=== PATIENT | female | born 1990 | race African-American/Black ===

== ENCOUNTER 2016-10-08 11:38 | Emergency (ER) | payer OTHER ==
[~2016-10-08] VITALS: Ht 165.1 cm; Wt 64.9 kg
[~2016-10-08 11:38] MED LIST: ACET-704 PO; PROM25TA10 PO
[2016-10-08] MEDS ORDERED: NAPROXEN 500 MG TABLET PO ONE (12:45)
--- NOTE | 2016-10-08 12:47 | ED.ADGEN ---
Past Medical History Past Medical History: Asthma Past Surgical History: Oophorectomy Additional Past Surgical Histo: right Alcohol Use: Heavy Drug Use: None Adult General Chief Complaint Chief Complaint: CHEST WALL PAIN HPI HPI Patient is a 26 year old woman, history of asthma, who presents to the emergency department with complaint of one week of chest and shoulder pain. 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 She states it is a sharp pain with motion, and a dull aching pain that is constant in her chest and shoulder without. Is worse with deep inspiration, states she does have some shortness of breath that she believes this might be from her asthma. Denies any fevers, any chills, any cough, any weakness numbness or tingling. Took Tylenol last night for this pain, nothing today. Does use Depo-Provera injections. No family history of cardiac disease in young people, states that her father did recently after a blood clot in his legs moved to his chest. Unclear the etiology for this clot, although she states that he did have a history of GSW which caused some medical problems. Review of Systems Review of Systems Constitutional: Denies fever or chills. [] Eyes: Denies change in visual acuity. [] HENT: Denies nasal congestion or sore throat. [] Respiratory: Denies cough or shortness of breath. [] Cardiovascular: Left-sided chest pain, shoulder pain. No edema. GI: Denies abdominal pain, nausea, vomiting, bloody stools or diarrhea. [] : Denies dysuria. [] Musculoskeletal: Denies back pain or joint pain. [] Integument: Denies rash. [] Neurologic: Denies headache, focal weakness or sensory changes. [] Endocrine: Denies polyuria or polydipsia. [] Lymphatic: Denies swollen glands. [] Psychiatric: Denies depression or anxiety. [] Current Medications Current Medications Current Medications Medications (Trade) Dose Ordered Sig/Eryn Start Time Stop Time Status Last Admin Dose Admin Naproxen (Naprosyn) 500 mg 1X ONCE 10/08/16 12:45 10/08/16 12:46 DC 10/08/16 13:12 500 MG Allergies Allergies Allergies Coded Allergies Type Severity Reaction Last Updated Verified No Known Drug Allergies 12/21/13 No Physical Exam Physical Exam Constitutional: Well developed, well nourished, no acute distress, non-toxic appearance. [] HENT: Normocephalic, atraumatic, bilateral external ears normal, oropharynx moist, no oral exudates, nose normal. [] Eyes: PERRLA, EOMI, conjunctiva normal, no discharge. [] Neck: Normal range of motion, no tenderness, supple, no stridor. [] Cardiovascular:Heart rate regular rhythm, no murmur, S1, S2, no rubs or gallops. Patient with reproducible chest wall tenderness across the left anterior chest wall, extending into the left shoulder. [] Lungs & Thorax: Bilateral breath sounds clear to auscultation, no wheezing, rhonchi, rales. No posterior chest will tenderness, no lesions or other abnormalities identified in the surface of the skin. [] Abdomen: Bowel sounds normal, soft, no tenderness, no rebound, rigidity, no guarding no masses, no pulsatile masses. [] Skin: Warm, dry, no erythema, no rash. [] Back: No tenderness, no CVA tenderness. [] Extremities: Tenderness to palpation in the left shoulder, the Stephane hemo-fossa, with no bony crepitus, patient with pain worse with internal rotation and extension, no cyanosis, no clubbing, ROM intact, no edema. [Negative Homans sign.] Neurologic: Alert and oriented X 3, normal motor function, normal sensory function, no focal deficits noted. [] Psychologic: Affect normal, judgement normal, mood normal. [] Current Patient Data Vital Signs Vital Signs Date Time Temp Pulse Resp B/P Pulse Ox O2 Delivery O2 Flow Rate FiO2 10/08/16 15:30 80 139/86 98 Room Air 10/08/16 11:55 98.6 16 98.6 Lab Values Laboratory Tests Test 10/08/16 13:06 10/08/16 13:24 10/08/16 13:50 Urine Opiates Screen Neg (NEG) Urine Methadone Screen Neg (NEG) Urine Barbiturates Neg (NEG) Urine Phencyclidine Screen Neg (NEG) Urine Amphetamine/Methamphetamine Neg (NEG) Urine Benzodiazepines Screen Neg (NEG) Urine Cocaine Screen Neg (NEG) Urine Cannabinoids Screen Neg (NEG) Urine Ethyl Alcohol Neg (NEG) POC Urine HCG, Qualitative Hcg negative (Negative) D-Dimer (Emily) 0.27ug/mlFEU (0.00-0.50) EKG EKG EC: Sinus rhythm, heart rate 100 bpm, upright axis, QTC of 449, NE 144, QRS 84, no ST elevations or depressions, no units of acute ST abnormalities. As interpreted by me. Radiology/Procedures Radiology/Procedures [] [place] [address] IMAGING REPORT Signed PATIENT: DOMENICA HOUSTON ACCOUNT: [id number] : 1990 LOCATION: ER AGE: 26 SEX: F EXAM STATUS: REG ER ORD. PHYSICIAN: REBA LANGSTON DO REASON: pain PROCEDURE: SHOULDER 2+V LEFT EXAM: Left shoulder 3 views. HISTORY: Left shoulder pain. COMPARISON: None. FINDINGS: No fractures are identified. Acromioclavicular and glenohumeral joint spaces and alignment are maintained. IMPRESSION: 1. No fracture or malalignment. DICTATED and SIGNED BY: TIFFANIE MCCORD MD DATE: 10/08/16 1341 CC: REBA LANGSTON DO; NO PCP ~ Impressions: [place] [phone] IMAGING REPORT Signed PATIENT: DOMENICA HOUSTON ACCOUNT: [id number] : 1990 LOCATION: ER AGE: 26 SEX: F EXAM STATUS: REG ER ORD. PHYSICIAN: REBA LANGSTON DO REASON: CP PROCEDURE: CHEST PA & LATERAL EXAM: Chest 2 views. HISTORY: Chest pain. COMPARISON: 10/10/2010. FINDINGS: Frontal and lateral views of the chest are obtained. There are no confluent infiltrates. There is no pneumothorax or pleural effusion. The heart is not enlarged. IMPRESSION: 1. No confluent infiltrates. DICTATED and SIGNED BY: TIFFANIE MCCORD MD DATE: 10/08/16 1342 CC: REBA LANGSTON DO; NO PCP ~ Course & Med Decision Making Course & Med Decision Making Pertinent Labs and Imaging studies reviewed. (See chart for details) Patient's examination is consistent with a musculoskeletal cause, however due to her family history and concern, initial heart rate of 101, use of Depo- Provera, a d-dimer was obtained which was negative. I do not believe that the patient is experiencing any findings consistent with a cardiac or pulmonary cause of her symptoms, patient received naproxen in the ED, and reevaluation she states that she is feeling "much much better", I discussed her labs and imaging, she is relieved with these findings, states she is rated go home. Discussed use of naproxen as needed, and concerning symptoms that would prompt return. Discharged home in stable condition with plan as above. Dragon Disclaimer Dragon Disclaimer This electronic medical record was generated, in whole or in part, using a voice recognition dictation system. Departure Impression: Primary Impression: Costochondritis Additional Impression: Musculoskeletal pain Disposition: HOME, SELF-CARE Condition: IMPROVED Scripts Naproxen 250 Mg [id number] Mg PO BID PRN PAIN #10 Prov:REBA LANGSTON DO 10/08/16 Problem Qualifiers REBA LANGSTON DO Oct 08, 2016 12:47
--- NOTE | 2016-10-08 13:44 | RAD ---
EXAM: Left shoulder 3 views. HISTORY: Left shoulder pain. COMPARISON: None. FINDINGS: No fractures are identified. Acromioclavicular and glenohumeral joint spaces and alignment are maintained. IMPRESSION: 1. No fracture or malalignment.
--- NOTE | 2016-10-08 13:44 | RAD ---
EXAM: Chest 2 views. HISTORY: Chest pain. COMPARISON: 10/10/2010. FINDINGS: Frontal and lateral views of the chest are obtained. There are no confluent infiltrates. There is no pneumothorax or pleural effusion. The heart is not enlarged. IMPRESSION: 1. No confluent infiltrates.
[2016-10-08 13:47] LABS: BARBITURATES NEG (NEG); BENZODIAZEPINES NEG (NEG); CANNABINOIDS NEG (NEG); COCAINE NEG (NEG); METHADONE NEG (NEG); OPIATES NEG (NEG); PHENCYCLIDINE NEG (NEG)
[2016-10-08 13:48] LABS: ETHANOL, URINE NEG (NEG)
--- NOTE | 2016-10-08 14:30 | EKG ---
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
[2016-10-08] MEDS ORDERED: NAPR250T2 PO (15:25)
[2016-10-08 15:30] VITALS: BP 139/86
== END 2016-10-08 15:52 | disposition home or self-care (01) ==
LOC: ER 11:43
DX: M94.0 Chondrocostal junction syndrome [Tietze] (principal); M79.1 Myalgia; M25.512 Pain in left shoulder; J45.909 Unspecified asthma, uncomplicated; F10.10 Alcohol abuse, uncomplicated; Z90.721 Acquired absence of ovaries, unilateral
CPT/HCPCS: 36415; 71020; 73030; 81025; 85379; 93005; 99285; G0481

== ENCOUNTER 2017-01-27 21:43 | Emergency (ER) | payer SELFPAY ==
[~2017-01-27] VITALS: Ht 165.1 cm; Wt 65.8 kg
[~2017-01-27 21:43] MED LIST changes: +NAPR250T2 PO
[2017-01-27 22:31] LABS: BASO % 1 % (0-3); EOS % 1 % (0-3); HEMATOCRIT 38.9 % (36.0-47.0); HEMOGLOBIN 13.3 g/dL (12.0-15.5); LYMPH # 1.7 x10^3/uL (1.0-4.8); LYMPH % 38 % (24-48); MEAN CORPUSCULAR HEMOGLOBIN 30 pg (25-35); MEAN CORPUSCULAR HGB CONC 34 g/dL (31-37); MEAN CORPUSCULAR VOLUME 87 fL (79-100); MONO % 9 % (0-9); NEUT % 52 % (31-73); PLATELET COUNT 163 x10^3/uL (140-400); RED BLOOD COUNT 4.47 x10^6/uL (3.50-5.40); RED CELL DISTRIBUTION WIDTH 14.4 % (11.5-14.5); WHITE BLOOD COUNT 4.5 x10^3/uL (4.0-11.0)
[2017-01-27 22:36] LABS: BILIRUBIN,URINE NEGATIVE (NEG); GLUCOSE,URINE NEGATIVE (NEG); NITRITE,URINE NEGATIVE (NEG); PH,URINE 5.5; PROTEIN,URINE NEGATIVE (NEG-TRACE); UROBILINOGEN,URINE 0.2 mg/dL (0.2 mg/dL)
[2017-01-27 22:43] LABS: CALCIUM 9.4 mg/dL (8.5-10.1); CREATININE 0.9 mg/dL (0.6-1.0); GFR 90.9
[2017-01-27] MEDS ORDERED: ONDANSETRON PF 4 MG/2 ML VIAL. IV ONE (22:45)
[2017-01-27] MEDS ORDERED: IV NORMAL SALINE 1000ML BAG 1,000 ML IV ONE (22:45)
[2017-01-27 22:50] LABS: ALBUMIN 4.1 g/dL (3.4-5.0); TOTAL BILIRUBIN 0.8 mg/dL (0.2-1.0); TOTAL PROTEIN 8.1 g/dL (6.4-8.2)
[2017-01-27 22:52] LABS: RBC,URINE 0 /HPF (0-2); WBC,URINE OCC /HPF (0-4)
[2017-01-27 22:53] LABS: BACTERIA,URINE 0 /HPF (0-FEW); SQUAMOUS EPITHELIAL CELL,UR OCC /LPF
[2017-01-27] MEDS ORDERED: ONDA4TAB10 SL (23:32)
[2017-01-27] MEDS ORDERED: IBUP-1007 PO (23:32)
--- NOTE | 2017-01-27 23:32 | PHYS DOC ---
Past Medical History Past Medical History: Asthma Past Surgical History: Oophorectomy Additional Past Surgical Histo: right Alcohol Use: Heavy Drug Use: None Adult General Chief Complaint Chief Complaint: ABDOMINAL PAIN HPI HPI Patient is a 26 year old female who presents here today complaining of lower back pain on the right side for approximately 3 days. Patient reports she been taking Tylenol was some relief. Patient denies any fevers shakes chills. Patient reports that nausea vomiting as well as diarrhea over the last couple days. Patient has a dysuria frequency urgency or hematuria. Patient's currently on her menses. Patient's 4 para 3. Patient reports decreased by mouth intake. Patient denies any chest pain shortness of breath. Patient denies any cough cold or runny nose. Patient has any vaginal discharge. Patient denies any history of hypertension diabetes liver longer kidney problems. Patient reports she is status post an oophorectomy secondary to a dermoid cyst in the past. Patient reports she does smoke and drink occasionally. Patient is not allergic to any medications. Patient presents at the pain is intermittent in nature. Patient reports the pain increases when she twists her back. Patient's physical exam was significant for some mild tenderness to palpation to her right flank. Patient does not present with any signs or symptoms of be consistent with retroperitonitis. Patient's abdomen was soft nondistended no rebound or guarding. Patient does have some mild tenderness to palpation to her right upper abdominal area. Patient has normal active bowel sounds. Patient does not present with any signs or symptoms of be consistent with an acute surgical abdomen. Patient's ER workup has been unremarkable. Patient's CBC chemistry and a UA that were all within normal limits. Etiology of the patient's abdominal discomfort is unclear. However the patient does not present with any signs or symptoms that would be consistent with an acute surgical abdomen. Patient does not present with any signs or symptoms that would require any further inpatient her ER evaluation at this time. Patient will need to follow-up with her primary care physician for further outpatient evaluation. Assessment and plan 26-year-old female since here today complaining of lower back pain as well as abdominal pain has been on for approximately 3 days. Patient's ER workup has been unremarkable. Patient be discharged home in stable condition with continued outpatient evaluation by her primary care physician. Precautions been reviewed with the patient. Patient is to return to the ER if the pain worsens or if the pain does not resolve within the next 12-24 hours. Patient is otherwise to follow-up with her primary care physician for further evaluation. Patient be discharged with a prescription for ibuprofen and Zofran. Review of Systems Review of Systems Constitutional: Denies fever or chills [] Eyes: Denies change in visual acuity, redness, or eye pain [] All other review systems are negative except as documented in the history of present illness portion. Current Medications Current Medications Current Medications Medications (Trade) Dose Ordered Sig/Eryn Start Time Stop Time Status Last Admin Dose Admin Ondansetron HCl (Zofran) 4 mg 1X ONCE 01/27/17 22:45 01/27/17 22:46 DC 01/27/17 22:40 4 MG Sodium Chloride 1,000 ml @ 1,000 mls/hr 1X ONCE 01/27/17 22:45 01/27/17 23:44 01/27/17 22:38 1,000 MLS/HR Allergies Allergies Allergies Coded Allergies Type Severity Reaction Last Updated Verified No Known Drug Allergies 12/21/13 No Physical Exam Physical Exam Constitutional: Well developed, well nourished, no acute distress, non-toxic appearance. [] HENT: Normocephalic, atraumatic, Eyes: PERRLA, EOMI, conjunctiva normal, no discharge. [] Neck: Normal range of motion, no tenderness, supple, no stridor. [] Cardiovascular:Heart rate regular rhythm Lungs & Thorax: Bilateral breath sounds clear to auscultation [] Abdomen: See above Back: No tenderness, no CVA tenderness. [] Extremities: No tenderness, no cyanosis, no clubbing, ROM intact, no edema. [] Neurologic: Alert and oriented X 3, normal motor function, normal sensory function, no focal deficits noted. [] Psychologic: Affect normal, judgement normal, mood normal. [] Current Patient Data Vital Signs Vital Signs Date Time Temp Pulse Resp B/P (MAP) Pulse Ox O2 Delivery O2 Flow Rate FiO2 01/27/17 21:51 98.6 80 18 136/83 (100) 97 Room Air 98.6 Lab Values Laboratory Tests Test 01/27/17 21:12 01/27/17 21:47 01/27/17 22:00 POC Urine HCG, Qualitative Hcg negative (Negative) Urine Collection Type Unknown Urine Color Yellow Urine Clarity Clear Urine pH 5.5 Urine Specific [place] <=1.005 Urine Protein Negative mg/dL (NEG-TRACE) Urine Glucose (UA) Negative mg/dL (NEG) Urine Ketones (Stick) Negative mg/dL (NEG) Urine Blood Negative (NEG) Urine Nitrite Negative (NEG) Urine Bilirubin Negative (NEG) Urine Urobilinogen Dipstick 0.2 mg/dL (0.2 mg/dL) Urine Leukocyte Esterase Negative (NEG) Urine RBC 0 /HPF (0-2) Urine WBC Occ /HPF (0-4) Urine Squamous Epithelial Cells Occ /LPF Urine Bacteria 0 /HPF (0-FEW) White Blood Count 4.5 x10^3/uL (4.0-11.0) Red Blood Count 4.47 x10^6/uL (3.50-5.40) Hemoglobin 13.3 g/dL (12.0-15.5) Hematocrit 38.9 % (36.0-47.0) Mean Corpuscular Volume 87 fL (79-100) Mean Corpuscular Hemoglobin 30 pg (25-35) Mean Corpuscular Hemoglobin Concent 34 g/dL (31-37) Red Cell Distribution Width 14.4 % (11.5-14.5) Platelet Count 163 x10^3/uL (140-400) Neutrophils (%) (Auto) 52 % (31-73) Lymphocytes (%) (Auto) 38 % (24-48) Monocytes (%) (Auto) 9 % (0-9) Eosinophils (%) (Auto) 1 % (0-3) Basophils (%) (Auto) 1 % (0-3) Neutrophils # (Auto) 2.3 x10^3uL (1.8-7.7) Lymphocytes # (Auto) 1.7 x10^3/uL (1.0-4.8) Monocytes # (Auto) 0.4 x10^3/uL (0.0-1.1) Eosinophils # (Auto) 0.1 x10^3/uL (0.0-0.7) Basophils # (Auto) 0.0 x10^3/uL (0.0-0.2) Sodium Level 138 mmol/L (136-145) Potassium Level 4.0 mmol/L (3.5-5.1) Chloride Level 101 mmol/L (98-107) Carbon Dioxide Level 25 mmol/L (21-32) Anion Gap 12 (6-14) Blood Urea Nitrogen 10 mg/dL (7-20) Creatinine 0.9 mg/dL (0.6-1.0) Estimated GFR (Cockcroft-Gault) 90.9 BUN/Creatinine Ratio 11 (6-20) Glucose Level 79 mg/dL (70-99) Calcium Level 9.4 mg/dL (8.5-10.1) Total Bilirubin 0.8 mg/dL (0.2-1.0) Aspartate Amino Transferase (AST) 78 U/L (15-37) H Alanine Aminotransferase (ALT) 76 U/L (14-59) H Alkaline Phosphatase 83 U/L (46-116) Total Protein 8.1 g/dL (6.4-8.2) Albumin 4.1 g/dL (3.4-5.0) Albumin/Globulin Ratio 1.0 (1.0-1.7) Lipase 148 U/L (73-393) Laboratory Tests 01/27/17 22:00 Laboratory Tests 01/27/17 22:00 EKG EKG [] Radiology/Procedures Radiology/Procedures [] Course & Med Decision Making Course & Med Decision Making Pertinent Labs and Imaging studies reviewed. (See chart for details) [] Dragon Disclaimer Dragon Disclaimer This electronic medical record was generated, in whole or in part, using a voice recognition dictation system. Departure Departure Impression: Primary Impression: Gastroenteritis Additional Impression: Nonspecific abdominal pain Disposition: 01 HOME, SELF-CARE Condition: IMPROVED Referrals: NO PCP (PCP) Patient Instructions: Abdominal Pain (Nonspecific) Scripts Ondansetron (ZOFRAN ODT) 4 Mg Tab.rapdis 1 TAB SL Q6HRS Y for NAUSEA, #12 TAB Prov: TREVOR GRAY MD 01/27/17 Ibuprofen (IBUPROFEN) 600 Mg Tablet 600 MG PO PRN Q6HRS Y for PAIN, #20 TAB Prov: TREVOR GRAY MD 01/27/17 Problem Qualifiers TREVOR GRAY MD Jan 27, 2017 23:32
[2017-01-27 23:40] VITALS: BP 120/86
== END 2017-01-27 23:40 | disposition home or self-care (01) ==
LOC: ER 21:43
DX: K21.9 Gastro-esophageal reflux disease without esophagitis (principal); R30.0 Dysuria; J45.909 Unspecified asthma, uncomplicated; F10.10 Alcohol abuse, uncomplicated
CPT/HCPCS: 36415; 80053; 81001; 81025; 83690; 85027; 96361; 96374; 99284; J2405; J7030

== ENCOUNTER 2017-05-23 16:52 | Emergency (ER) | payer SELFPAY ==
[~2017-05-23] VITALS: Ht 165.1 cm; Wt 63.5 kg
[~2017-05-23 16:52] MED LIST changes: +IBUP-1007 PO; -NAPR250T2 PO; +NAPR250T6 PO; +ONDA4TAB10 SL; +PROAIR HFA8.5 GM INH
[2017-05-23] MEDS ORDERED: IV NORMAL SALINE 1000ML BAG 1,000 ML IV ONE (17:45)
[2017-05-23 18:17] LABS: BILIRUBIN,URINE NEGATIVE (NEG); GLUCOSE,URINE NEGATIVE (NEG); NITRITE,URINE NEGATIVE (NEG); PH,URINE 5.5; PROTEIN,URINE NEGATIVE (NEG-TRACE); UROBILINOGEN,URINE 0.2 mg/dL (0.2 mg/dL)
[2017-05-23 18:22] LABS: BASO % 0 % (0-3); EOS % 1 % (0-3); HEMATOCRIT 38.1 % (36.0-47.0); HEMOGLOBIN 12.9 g/dL (12.0-15.5); LYMPH # 1.8 x10^3/uL (1.0-4.8); LYMPH % 31 % (24-48); MEAN CORPUSCULAR HEMOGLOBIN 30 pg (25-35); MEAN CORPUSCULAR HGB CONC 34 g/dL (31-37); MEAN CORPUSCULAR VOLUME 88 fL (79-100); MONO % 8 % (0-9); NEUT % 60 % (31-73); PLATELET COUNT 194 x10^3/uL (140-400); RED BLOOD COUNT 4.34 x10^6/uL (3.50-5.40)
--- NOTE | 2017-05-23 18:22 | PHYS DOC ---
Past Medical History Past Medical History: Alcoholism, Asthma Past Surgical History: Oophorectomy Additional Past Surgical Histo: right Smokin Pack Per Day Alcohol Use: Heavy Drug Use: None Adult General Chief Complaint Chief Complaint: CHEST PAIN HPI HPI Patient is a 26 year old female presents to the emergency department with a one -week history of left anterior chest pain. She states today she had intermittent dizziness. She denies blurred vision, double vision, neck pain, abdominal pain. She has no nausea, vomiting. Reports no fever. Patient states she does smoke 1 pack of cigarettes a day and uses alcohol daily, states that she has been drinking a 12 pack of beer daily for the past 11-12 years. Denies drug use Review of Systems Review of Systems Constitutional: Denies fever or chills [] Eyes: Denies change in visual acuity, redness, or eye pain [] HENT: Denies nasal congestion or sore throat [] Respiratory: Denies cough or shortness of breath [] Cardiovascular: Left anterior chest pain, no dyspnea, no edema GI: Denies abdominal pain, nausea, vomiting, bloody stools or diarrhea [] : Denies dysuria or hematuria [] Musculoskeletal: Denies back pain or joint pain [] Integument: Denies rash or skin lesions [] Neurologic: Denies headache, focal weakness or sensory changes [] Endocrine: Denies polyuria or polydipsia [] Current Medications Current Medications Current Medications Medications (Trade) Dose Ordered Sig/Eryn Start Time Stop Time Status Last Admin Dose Admin Ketorolac Tromethamine (Toradol) 30 mg 1X ONCE 05/23/17 18:45 05/23/17 18:46 DC Sodium Chloride 1,000 ml @ 1,000 mls/hr 1X ONCE 05/23/17 17:45 05/23/17 18:44 DC 05/23/17 18:16 1,000 MLS/HR Allergies Allergies Allergies Coded Allergies Type Severity Reaction Last Updated Verified No Known Drug Allergies 12/21/13 No Physical Exam Physical Exam Constitutional: Well developed, well nourished, no acute distress, non-toxic appearance. [] HENT: Normocephalic, atraumatic, bilateral external ears normal, oropharynx moist, no oral exudates, nose normal. [] Eyes: PERRLA, EOMI, conjunctiva normal, no discharge. [] Neck: Normal range of motion, no tenderness, supple, no stridor. [] Cardiovascular:Heart rate regular rhythm, no murmur [] Lungs & Thorax: Bilateral breath sounds clear to auscultation [] Abdomen: Bowel sounds normal, soft, no tenderness, no masses, no pulsatile masses. [] Skin: Warm, dry, no erythema, no rash. [] Back: No tenderness, no CVA tenderness. [] Extremities: No tenderness, no cyanosis, no clubbing, ROM intact, no edema. [] Neurologic: Alert and oriented X 3, normal motor function, normal sensory function, no focal deficits noted. [] Psychologic: Affect normal, judgement normal, mood normal. [] Current Patient Data Vital Signs Vital Signs Date Time Temp Pulse Resp B/P (MAP) Pulse Ox O2 Delivery O2 Flow Rate FiO2 05/23/17 18:03 98 20 137/91 (106) 99 Room Air 05/23/17 17:11 98.3 98.3 Lab Values Laboratory Tests Test 05/23/17 17:10 05/23/17 17:58 05/23/17 18:03 05/23/17 18:09 POC Urine HCG, Qualitative Hcg negative (Negative) Hcg negative (Negative) Urine Color Yellow Urine Clarity Clear Urine pH 5.5 Urine Specific [place] <=1.005 Urine Protein Negative mg/dL (NEG-TRACE) Urine Glucose (UA) Negative mg/dL (NEG) Urine Ketones (Stick) Negative mg/dL (NEG) Urine Blood Negative (NEG) Urine Nitrite Negative (NEG) Urine Bilirubin Negative (NEG) Urine Urobilinogen Dipstick 0.2 mg/dL (0.2 mg/dL) Urine Leukocyte Esterase Negative (NEG) Urine RBC 0 /HPF (0-2) Urine WBC 0 /HPF (0-4) Urine Squamous Epithelial Cells Occ /LPF Urine Bacteria 0 /HPF (0-FEW) Urine Opiates Screen Neg (NEG) Urine Methadone Screen Neg (NEG) Urine Barbiturates Neg (NEG) Urine Phencyclidine Screen Neg (NEG) Urine Amphetamine/Methamphetamine Neg (NEG) Urine Benzodiazepines Screen Neg (NEG) Urine Cocaine Screen Neg (NEG) Urine Cannabinoids Screen Neg (NEG) Urine Ethyl Alcohol Neg (NEG) White Blood Count 6.0 x10^3/uL (4.0-11.0) Red Blood Count 4.34 x10^6/uL (3.50-5.40) Hemoglobin 12.9 g/dL (12.0-15.5) Hematocrit 38.1 % (36.0-47.0) Mean Corpuscular Volume 88 fL (79-100) Mean Corpuscular Hemoglobin 30 pg (25-35) Mean Corpuscular Hemoglobin Concent 34 g/dL (31-37) Red Cell Distribution Width 13.0 % (11.5-14.5) Platelet Count 194 x10^3/uL (140-400) Neutrophils (%) (Auto) 60 % (31-73) Lymphocytes (%) (Auto) 31 % (24-48) Monocytes (%) (Auto) 8 % (0-9) Eosinophils (%) (Auto) 1 % (0-3) Basophils (%) (Auto) 0 % (0-3) Neutrophils # (Auto) 3.6 x10^3uL (1.8-7.7) Lymphocytes # (Auto) 1.8 x10^3/uL (1.0-4.8) Monocytes # (Auto) 0.5 x10^3/uL (0.0-1.1) Eosinophils # (Auto) 0.1 x10^3/uL (0.0-0.7) Basophils # (Auto) 0.0 x10^3/uL (0.0-0.2) Sodium Level 137 mmol/L (136-145) Potassium Level 3.3 mmol/L (3.5-5.1) L Chloride Level 104 mmol/L (98-107) Carbon Dioxide Level 25 mmol/L (21-32) Anion Gap 8 (6-14) Blood Urea Nitrogen 11 mg/dL (7-20) Creatinine 0.7 mg/dL (0.6-1.0) Estimated GFR (Cockcroft-Gault) 121.5 BUN/Creatinine Ratio 16 (6-20) Glucose Level 88 mg/dL (70-99) Calcium Level 8.9 mg/dL (8.5-10.1) Total Bilirubin 0.6 mg/dL (0.2-1.0) Aspartate Amino Transferase (AST) 29 U/L (15-37) Alanine Aminotransferase (ALT) 29 U/L (14-59) Alkaline Phosphatase 75 U/L (46-116) Creatine Kinase 322 U/L (26-192) H Creatine Kinase MB (Mass) 1.2 ng/mL (0.0-3.6) Creatine Kinase MB Relative Index 0.4 % (0-4) Total Protein 7.9 g/dL (6.4-8.2) Albumin 4.0 g/dL (3.4-5.0) Albumin/Globulin Ratio 1.0 (1.0-1.7) Test 05/23/17 18:14 POC Troponin I 0.00 ng/ml (<0.08) Laboratory Tests 05/23/17 18:09 Laboratory Tests 05/23/17 18:09 EKG EKG EKG, time completed 1708, reviewed by Dr. Kaufman, non-STEMI, sinus rhythm.[] Radiology/Procedures Radiology/Procedures [] Course & Med Decision Making Course & Med Decision Making Pertinent Labs and Imaging studies reviewed. (See chart for details) []EKG and lab results reviewed, CK at 322. 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 She sees ibuprofen or Tylenol for relief of symptoms. She is returning emergency Department for new symptoms or concerns or worsening of current condition. I did discuss with the patient her excessive use of alcohol and tobacco, she verbalizes understanding but laughs when recommendations to quit are discussed. Dragon Disclaimer Dragon Disclaimer This electronic medical record was generated, in whole or in part, using a voice recognition dictation system. Departure Departure Impression: Primary Impression: Chest wall pain Additional Impressions: Alcohol abuse Tobacco use Disposition: 01 HOME, SELF-CARE Condition: STABLE Referrals: NO PCP (PCP) [facility] Patient Instructions: Alcohol Problems, Chest Wall Pain, Smoking Cessation Scripts Ibuprofen (IBUPROFEN) 800 Mg Tablet 800 MG PO PRN Q6HRS Y for INFLAMMATION, #20 TAB Prov: ZENAIDA BRUNO APRN 05/23/17 Problem Qualifiers ZENAIDA BRUNO APRN May 23, 2017 18:22
[2017-05-23 18:27] LABS: BARBITURATES NEG (NEG); BENZODIAZEPINES NEG (NEG); CANNABINOIDS NEG (NEG); COCAINE NEG (NEG); METHADONE NEG (NEG); OPIATES NEG (NEG); PHENCYCLIDINE NEG (NEG)
[2017-05-23 18:30] LABS: BACTERIA,URINE 0 /HPF (0-FEW); RBC,URINE 0 /HPF (0-2); SQUAMOUS EPITHELIAL CELL,UR OCC /LPF; WBC,URINE 0 /HPF (0-4)
[2017-05-23 18:38] LABS: CALCIUM 8.9 mg/dL (8.5-10.1); CREATININE 0.7 mg/dL (0.6-1.0); GFR 121.5; POTASSIUM 3.3 mmol/L (3.5-5.1)
[2017-05-23] MEDS ORDERED: KETOROLAC 30 MG/ML INJ. IV ONE (18:45)
[2017-05-23 18:48] LABS: TOTAL BILIRUBIN 0.6 mg/dL (0.2-1.0); TOTAL PROTEIN 7.9 g/dL (6.4-8.2)
[2017-05-23 18:54] LABS: CKMB MASS 1.2 ng/mL (0.0-3.6)
[2017-05-23 19:03] VITALS: BP 133/91
[2017-05-23] MEDS ORDERED: IBUP-1060 PO (19:10)
--- NOTE | 2017-05-24 06:21 | EKG ---
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
== END 2017-05-23 19:23 | disposition home or self-care (01) ==
LOC: ER 16:52
DX: R07.89 Other chest pain (principal); F10.10 Alcohol abuse, uncomplicated; R42 Dizziness and giddiness; J45.909 Unspecified asthma, uncomplicated; F17.210 Nicotine dependence, cigarettes, uncomplicated
CPT/HCPCS: 36415; 80053; 80307; 81001; 81025; 82553; 84484; 85025; 93005; 96361; 96374; 99285; J1885; J7030; G0479

== ENCOUNTER 2018-04-06 09:27 | Emergency (ER) | payer SELFPAY ==
[~2018-04-06] VITALS: Ht 165.1 cm; Wt 68.0 kg
[~2018-04-06 09:27] MED LIST changes: +IBUP-1060 PO
[2018-04-06 09:48] LABS: BILIRUBIN,URINE NEGATIVE (NEG); CLARITY,URINE CLEAR; COLOR,URINE YELLOW; NITRITE,URINE NEGATIVE (NEG); PROTEIN,URINE NEGATIVE (NEG-TRACE); UROBILINOGEN,URINE 0.2 mg/dL (0.2 mg/dL)
--- NOTE | 2018-04-06 09:49 | PHYS DOC ---
Past Medical History Past Medical History: Alcoholism, Asthma Past Surgical History: Oophorectomy Additional Past Surgical Histo: right Alcohol Use: Heavy Additional Information: 10 beers per day. Drug Use: None Adult General Chief Complaint Chief Complaint: FLANK PAIN HPI HPI Patient is a 27 year old female presents to the ED complaining of right flank pain times one day ago. States the pain started last night. States the pain radiates around to her right lower abdomen. Describes the pain as sharp. Rates the pain as 8 out of 10. States symptoms include nausea. Denies dizziness, weakness, chest pain, shortness of breath, headache, fever, diarrhea, blood in stool. Review of Systems Review of Systems Constitutional: Denies fever or chills [] Eyes: Denies change in visual acuity, redness, or eye pain [] HENT: Denies nasal congestion or sore throat [] Respiratory: Denies cough or shortness of breath [] Cardiovascular: No additional information not addressed in HPI [] GI: Complains of abdominal pain and nausea. Denies vomiting, bloody stools or diarrhea [] : Denies dysuria or hematuria [] Musculoskeletal: Denies back pain or joint pain [] Integument: Denies rash or skin lesions [] Neurologic: Denies headache, focal weakness or sensory changes [] All other systems were reviewed and found to be within normal limits, except as documented in this note. Current Medications Current Medications Current Medications Medications (Trade) Dose Ordered Sig/Eryn Start Time Stop Time Status Last Admin Dose Admin Ketorolac Tromethamine (Toradol 30mg Vial) 30 mg 1X ONCE 04/06/18 11:30 04/06/18 11:31 DC 04/06/18 11:12 30 MG Morphine Sulfate (Morphine Sulfate) 4 mg 1X ONCE 04/06/18 10:00 04/06/18 10:01 DC 04/06/18 10:00 4 MG Ondansetron HCl (Zofran) 4 mg 1X ONCE 04/06/18 10:00 04/06/18 10:01 DC 04/06/18 10:00 4 MG Sodium Chloride 1,000 ml @ 1,000 mls/hr 1X ONCE 04/06/18 11:00 04/06/18 11:59 DC 04/06/18 11:11 1,000 MLS/HR Allergies Allergies Allergies Coded Allergies Type Severity Reaction Last Updated Verified No Known Drug Allergies 12/21/13 No Physical Exam Physical Exam Constitutional: Well developed, well nourished, no acute distress, non-toxic appearance. [] HENT: Normocephalic, atraumatic Neck: Normal range of motion, no tenderness, supple, no stridor. [] Cardiovascular:Heart rate regular rhythm, no murmur [] Lungs & Thorax: Bilateral breath sounds clear to auscultation [] Abdomen: Bowel sounds normal, soft, mild right sided abdominal tenderness, no masses, no pulsatile masses. [] Skin: Warm, dry, no erythema, no rash. [] Back: No tenderness, no CVA tenderness. [] Extremities: No tenderness, no cyanosis, no clubbing, ROM intact, no edema. [] Neurologic: Alert and oriented X 3, normal motor function, normal sensory function, no focal deficits noted. [] Psychologic: Affect normal, judgement normal, mood normal. [] Current Patient Data Vital Signs Vital Signs Date Time Temp Pulse Resp B/P (MAP) Pulse Ox O2 Delivery O2 Flow Rate FiO2 04/06/18 11:54 72 18 95/58 (70) 98 Room Air 04/06/18 09:30 98.4 98.4 Lab Values Laboratory Tests Test 04/06/18 09:32 04/06/18 09:50 Urine Collection Type Unknown Urine Color Yellow Urine Clarity Clear Urine pH 6.0 Urine Specific [place] 1.015 Urine Protein Negative mg/dL (NEG-TRACE) Urine Glucose (UA) Negative mg/dL (NEG) Urine Ketones (Stick) Negative mg/dL (NEG) Urine Blood Negative (NEG) Urine Nitrite Negative (NEG) Urine Bilirubin Negative (NEG) Urine Urobilinogen Dipstick 0.2 mg/dL (0.2 mg/dL) Urine Leukocyte Esterase Negative (NEG) Urine RBC 0 /HPF (0-2) Urine WBC 0 /HPF (0-4) Urine Squamous Epithelial Cells Mod /LPF Urine Bacteria 0 /HPF (0-FEW) Urine Mucus Slight /LPF Urine Test Negative (NEG) White Blood Count 5.8 x10^3/uL (4.0-11.0) Red Blood Count 4.41 x10^6/uL (3.50-5.40) Hemoglobin 13.3 g/dL (12.0-15.5) Hematocrit 37.7 % (36.0-47.0) Mean Corpuscular Volume 85 fL (79-100) Mean Corpuscular Hemoglobin 30 pg (25-35) Mean Corpuscular Hemoglobin Concent 35 g/dL (31-37) Red Cell Distribution Width 12.5 % (11.5-14.5) Platelet Count 219 x10^3/uL (140-400) Neutrophils (%) (Auto) 55 % (31-73) Lymphocytes (%) (Auto) 34 % (24-48) Monocytes (%) (Auto) 9 % (0-9) Eosinophils (%) (Auto) 2 % (0-3) Basophils (%) (Auto) 1 % (0-3) Neutrophils # (Auto) 3.2 x10^3uL (1.8-7.7) Lymphocytes # (Auto) 1.9 x10^3/uL (1.0-4.8) Monocytes # (Auto) 0.5 x10^3/uL (0.0-1.1) Eosinophils # (Auto) 0.1 x10^3/uL (0.0-0.7) Basophils # (Auto) 0.0 x10^3/uL (0.0-0.2) Sodium Level 140 mmol/L (136-145) Potassium Level 4.2 mmol/L (3.5-5.1) Chloride Level 104 mmol/L (98-107) Carbon Dioxide Level 26 mmol/L (21-32) Anion Gap 10 (6-14) Blood Urea Nitrogen 8 mg/dL (7-20) Creatinine 0.8 mg/dL (0.6-1.0) Estimated GFR (Cockcroft-Gault) 103.3 BUN/Creatinine Ratio 10 (6-20) Glucose Level 85 mg/dL (70-99) Calcium Level 8.4 mg/dL (8.5-10.1) L Total Bilirubin 0.4 mg/dL (0.2-1.0) Aspartate Amino Transferase (AST) 16 U/L (15-37) Alanine Aminotransferase (ALT) 17 U/L (14-59) Alkaline Phosphatase 76 U/L (46-116) Total Protein 7.4 g/dL (6.4-8.2) Albumin 3.6 g/dL (3.4-5.0) Albumin/Globulin Ratio 0.9 (1.0-1.7) L Lipase 99 U/L (73-393) Laboratory Tests 04/06/18 09:50 Laboratory Tests 04/06/18 09:50 EKG EKG [] Radiology/Procedures Radiology/Procedures PROCEDURE: CT ABDOMEN PELVIS WO CONTRAST CT abdomen and pelvis without contrast: Reason for examination: Right flank to right lower quadrant pain for 3 days. Helical images were obtained through the abdomen pelvis with no intravenous or oral contrast administered. Reconstruction was performed in sagittal and coronal planes. Exposure: One or more of the following individualized dose reduction techniques were utilized for this examination: 1. Automated exposure control 2. Adjustment of the mA and/or kV according to patient size 3. Use of iterative reconstruction technique. The lung bases are clear. The heart size is normal with no pericardial effusion. No abnormality seen at the liver, gallbladder, spleen, adrenal glands or pancreas. The abdominal aorta and inferior vena cava show no abnormalities. The kidneys show no renal masses or renal calculi. No hydronephrosis is evident. Along the course of the right ureter however there is a 3.2 mm calculus present. No other calcifications are seen along the course of the ureters. No abnormality seen at the appendix. The intestinal tract shows no abnormally dilated loops of bowel. There is no evidence of diverticulosis or diverticulitis. No abnormality seen at the bladder, uterus or at the adnexa. No free fluid or free air is seen in the abdomen or pelvis. No acute bony abnormalities are seen. IMPRESSION: 3.2 mm calcification seen at the mid right ureter but no hydronephrosis is evident. No other focal abnormality seen in the abdomen or pelvis.[] Course & Med Decision Making Course & Med Decision Making Pertinent Labs and Imaging studies reviewed. (See chart for details) []Discussed lab and imaging findings with patient. Patient's pain improved. States she is feeling much better. On reexamination, abdomen is soft nontender nondistended. No peritoneal signs. Tolerating by mouth. We'll discharge outpatient with antibiotics, analgesics and Flomax. Discussed follow-up with PCP this coming week. Provided contact information/education. Discussed reasons to return to the ED. Patient understands and agrees with plan. Dragon Disclaimer Dragon Disclaimer This electronic medical record was generated, in whole or in part, using a voice recognition dictation system. Departure Departure Impression: Primary Impression: Kidney stone Disposition: HOME, SELF-CARE Condition: IMPROVED Referrals: NO PCP (PCP) DEO ARAYA MD Patient Instructions: Kidney Stones Scripts Hydrocodone/Apap 5-325 (NORCO 5-325 TABLET) 1 Each Tablet 1 TAB PO BID for 3 Days, #6 TAB Prov: DEO FLOWERS 04/06/18 Tamsulosin Hcl (FLOMAX) 0.4 Mg Cap.er.24h 1 CAP PO DAILY, #7 CAP 0 Refills Prov: DEO FLOWERS 04/06/18 Ciprofloxacin Hcl (CIPRO) 500 Mg Tablet 1 TAB PO BID for 7 Days, #14 TAB Prov: DEO FLOWERS 04/06/18 DEO FLOWERS Apr 06, 2018 09:49
[2018-04-06 10:00] LABS: BASO % 1 % (0-3); EOS # 0.1 x10^3/uL (0.0-0.7); EOS % 2 % (0-3); HEMATOCRIT 37.7 % (36.0-47.0); HEMOGLOBIN 13.3 g/dL (12.0-15.5); LYMPH # 1.9 x10^3/uL (1.0-4.8); LYMPH % 34 % (24-48); MEAN CORPUSCULAR HEMOGLOBIN 30 pg (25-35); MEAN CORPUSCULAR HGB CONC 35 g/dL (31-37); MEAN CORPUSCULAR VOLUME 85 fL (79-100); MONO # 0.5 x10^3/uL (0.0-1.1); MONO % 9 % (0-9); NEUT # 3.2 x10^3uL (1.8-7.7); NEUT % 55 % (31-73); PLATELET COUNT 219 x10^3/uL (140-400); RED BLOOD COUNT 4.41 x10^6/uL (3.50-5.40); RED CELL DISTRIBUTION WIDTH 12.5 % (11.5-14.5); WHITE BLOOD COUNT 5.8 x10^3/uL (4.0-11.0)
[2018-04-06] MEDS ORDERED: ONDANSETRON PF 4 MG/2 ML VIAL. IV ONE (10:00)
[2018-04-06] MEDS ORDERED: MORPHINE SULFATE 4 MG/ML VIAL. IV ONE (10:00)
[2018-04-06 10:07] LABS: U PREG PATIENT NEGATIVE (NEG)
[2018-04-06 10:08] LABS: CALCIUM 8.4 mg/dL (8.5-10.1); CREATININE 0.8 mg/dL (0.6-1.0); GFR 103.3; POTASSIUM 4.2 mmol/L (3.5-5.1)
[2018-04-06 10:13] LABS: ALBUMIN 3.6 g/dL (3.4-5.0); ALBUMIN/GLOBULIN RATIO 0.9 (1.0-1.7); TOTAL BILIRUBIN 0.4 mg/dL (0.2-1.0); TOTAL PROTEIN 7.4 g/dL (6.4-8.2)
[2018-04-06 10:20] LABS: BACTERIA,URINE 0 /HPF (0-FEW); RBC,URINE 0 /HPF (0-2); SQUAMOUS EPITHELIAL CELL,UR MOD /LPF; WBC,URINE 0 /HPF (0-4)
--- NOTE | 2018-04-06 10:48 | RAD ---
CT abdomen and pelvis without contrast: Reason for examination: Right flank to right lower quadrant pain for 3 days. Helical images were obtained through the abdomen pelvis with no intravenous or oral contrast administered. Reconstruction was performed in sagittal and coronal planes. Exposure: One or more of the following individualized dose reduction techniques were utilized for this examination: 1. Automated exposure control 2. Adjustment of the mA and/or kV according to patient size 3. Use of iterative reconstruction technique. The lung bases are clear. The heart size is normal with no pericardial effusion. No abnormality seen at the liver, gallbladder, spleen, adrenal glands or pancreas. The abdominal aorta and inferior vena cava show no abnormalities. The kidneys show no renal masses or renal calculi. No hydronephrosis is evident. Along the course of the right ureter however there is a 3.2 mm calculus present. No other calcifications are seen along the course of the ureters. No abnormality seen at the appendix. The intestinal tract shows no abnormally dilated loops of bowel. There is no evidence of diverticulosis or diverticulitis. No abnormality seen at the bladder, uterus or at the adnexa. No free fluid or free air is seen in the abdomen or pelvis. No acute bony abnormalities are seen. IMPRESSION: 3.2 mm calcification seen at the mid right ureter but no hydronephrosis is evident. No other focal abnormality seen in the abdomen or pelvis. Electronically signed by: Leyla Delaney MD (04/06/2018 10:44 AM) [facility]
[2018-04-06] MEDS ORDERED: IV NORMAL SALINE 1000ML BAG 1,000 ML IV ONE (11:00)
[2018-04-06] MEDS ORDERED: HYDR-971 PO (11:17)
[2018-04-06] MEDS ORDERED: CIPR500T94 PO (11:17)
[2018-04-06] MEDS ORDERED: TAMS0.4C97 PO (11:17)
[2018-04-06] MEDS ORDERED: KETOROLAC 30 MG/ML VIAL. IV ONE (11:30)
[2018-04-06 11:54] VITALS: BP 95/58
== END 2018-04-06 12:04 | disposition home or self-care (01) ==
LOC: ER 09:27
DX: N20.0 Calculus of kidney (principal); J45.909 Unspecified asthma, uncomplicated; F10.10 Alcohol abuse, uncomplicated; Y90.9 Presence of alcohol in blood, level not specified
CPT/HCPCS: 36415; 74176; 80053; 81001; 81025; 83690; 85025; 96374; 96375; 99285; J1885; J2270; J2405; J7030